=== PATIENT | male | born 1970 | race Caucasian/White ===

== ENCOUNTER 2019-12-31 16:10 | Emergency (ER) | payer OTHER ==
[2019-12-31] MEDS ORDERED: ASPIRIN 325 MG TABLET PO ONE (16:14)
--- NOTE | 2019-12-31 16:16 | PDOC ---
Attending Attestation - Resident Resident Name: Ethan Anand - ED Attending Attestation I have performed the following: I have examined & evaluated the patient, The case was reviewed & discussed with the resident, I agree w/resident's findings & plan, Exceptions are as noted - HPI HPI: 12/31/19 16:12 49YOM without PMH, smokes 1PPD, family h/o CAD in his father, who p/w chest pain for the past month, being treated for the past 4 days as GERD, now acutely worse for the past 20 minutes and associated with diaphoresis, SOB, nausea, impending doom feeling. Pain radiates up to both sides of his neck and jaw. He did not take any medication for this. Denies any trauma, vomiting, f/c, abdominal pain, back pain, etc. - Physicial Exam PE: 12/31/19 17:00 GENERAL: Patient writhing, yelling, in severe distress, clutching mid-chest, a bit diaphoretic HEENT: PERRLA, EOMI, moist mucous membranes NECK/BACK: no midline ttp, no spinal step-off or deformity, no hematoma, full ROM, neck supple CARDIOVASCULAR: regular rate/rhythm, no MGR, strong peripheral pulses, capillary refill <2 seconds, extremities wwp, no edema LUNGS/RESPIRATORY: no respiratory distress, CTAB GI/ABDOMEN: symmetric [id number], normoactive BS, soft, no ttp, no midline pulsatile masses : no CVA tenderness MSK/EXTREMITIES: no muscle atrophy, no acute deformity SKIN: warm and dry, no pallor, no jaundice, no rash, no pathologic-appearing bruising, no skin breakdown, no cuts, no lesions NEUROLOGICAL: GCS 15, CN II-XII grossly intact, 5/5 strength proximally and distally, no facial droop - Medical Decision Making 12/31/19 16:32 49YOM without PMH p/w STEMI, crushing chest pain, SOB, nausea, diaphoresis, impending doom feeling Initial Vital Signs Temp Pulse Resp BP Pulse Ox 98 F 62 20 130/78 100 12/31/19 16:12 12/31/19 16:12 12/31/19 16:12 12/31/19 16:12 12/31/19 16:12 12/31/19 16:20 ASA 324 mg given to chew. Patient accepted Code Red to [facility], Dr. Kingsley. I let the [facility] transfer conference center manager know this needs to be top priority code red. 12/31/19 16:27 Heparin bolus + drip ordered in consultation with [facility] Cardiology. On initial EKG there is no NANY in V1 (which is the only lead looking directly at the right ventricle). Small dose morphine ordered as patient was nearly screaming in pain (BP prior to administration in the 140s systolic). Patient notes still in significant pain after morphine and ASA. Getting Ofirmev and IVF now. Radial pulses equal, not hypertensive, no midline pulsatile mass, still severe distress writhing in bed. 12/31/19 16:40 Ordering repeat EKG as the patient continues to have severe pain, continues to writhe. RN calling [facility] transfer center to ensure transport is en route. 12/31/19 16:43 I have texted [facility] cardiology team to have them request expedited transport as well. Confirmed [facility] en route. Repeat shows significantly worsened NANY in II/III/aVF with significant reciprocal depressions. Last Vital Signs Temp Pulse Resp BP Pulse Ox 98 F 64 18 137/78 100 12/31/19 16:12 12/31/19 17:04 12/31/19 16:45 12/31/19 17:04 12/31/19 16:45 1/2 inch NTG paste placed on chest with significant relief of pain. EMS arrives and informed they can remove nitro paste from chest wall if pressure drops below 120 systolic. Patient reports residual pain, but much better controlled. Provider Orders Category Date Time Status TYPE AND SCREEN Stat Blood Bank 12/31/19 16:19 Completed EKG [ELECTROCARDIOGRAM] [CARD] Stat Cardiology 12/31/19 16:36 Completed EKG [ELECTROCARDIOGRAM] [CARD] Stat Cardiology 12/31/19 16:38 Ordered EKG needed NOW Care 12/31/19 16:36 Completed CARDIAC PROFILE (ONLY [facility]) Stat Lab 12/31/19 16:14 Completed CBC WITH DIFFERENTIAL Stat Lab 12/31/19 16:18 Completed CK INDEX Stat Lab 12/31/19 16:14 Completed CK MB Stat Lab 12/31/19 16:14 Completed COMP METABOLIC PANEL Stat Lab 12/31/19 16:14 Completed Acetaminophen Injection [Ofirmev Injection -] 100 ml Medication 12/31/19 16:23 Discontinued IVPB UD Aspirin [ASA -] Medication 12/31/19 16:18 Discontinued 324 mg .ROUTE .STK-MED ONE Aspirin [ASA -] Medication 12/31/19 16:14 Discontinued 325 mg PO ONCE ONE Heparin - Medication 12/31/19 16:31 Discontinued 5,000 unit .ROUTE .STK-MED ONE Heparin - Medication 12/31/19 16:27 Discontinued 5,000 unit IVPUSH PRN PRN Heparin - 25,000 unit Medication 12/31/19 16:30 Discontinued Sodium Chloride [Normal Saline -] 495 ml IV TITR Heparin Infusion - Medication 12/31/19 16:31 Discontinued 25,000 units in 500 ml IVPB UD Morphine Injection - Medication 12/31/19 16:34 Discontinued 4 mg IVPUSH ONCE ONE Morphine Sulfate Medication 12/31/19 16:24 Discontinued 2 mg IVPUSH ONCE ONE Morphine Sulfate Medication 12/31/19 16:24 Discontinued 4 mg .ROUTE .STK-MED ONE Morphine Sulfate Medication 12/31/19 16:34 Discontinued 4 mg .ROUTE .STK-MED ONE Nitroglycerin 2% Paste [Nitro-Bid 2% Paste -] Medication 12/31/19 16:36 Discontinued 1 inch TD .STK-MED ONE Nitroglycerin 2% Paste [Nitro-Bid 2% Paste -] Medication 12/31/19 16:36 Discontinued 1 inch TD ONCE ONE Sodium Chloride [Normal Saline -] Medication 12/31/19 16:20 Discontinued 1,000 ml IV ONCE ONE CHEST X-RAY PORTABLE* [RAD] Stat Radiology 12/31/19 16:16 Completed Medications Discontinued Medications Generic Name Dose Route Start Last Admin Trade Name Freq PRN Reason Stop Dose Admin Aspirin 325 mg 12/31/19 16:14 12/31/19 16:18 Asa - PO 12/31/19 16:15 325 mg ONCE ONE Administration Aspirin Confirm 12/31/19 16:18 Asa - Administered 12/31/19 16:19 Dose 324 mg .ROUTE .STK-MED ONE Heparin Sodium (Porcine) 5,000 unit 12/31/19 16:27 12/31/19 16:48 Heparin - IVPUSH 5,000 unit PRN PRN Administration Heparin Heparin Sodium (Porcine) Confirm 12/31/19 16:31 Heparin - Administered 12/31/19 16:32 Dose 5,000 unit .ROUTE .STK-MED ONE Acetaminophen Confirm 12/31/19 16:23 Ofirmev Injection - Administered 12/31/19 16:24 Dose 100 mls @ ud IVPB .STK-MED ONE Heparin Sodium (Porcine) 25, 500 mls @ 20 mls/hr 12/31/19 16:30 12/31/19 16:47 000 unit/ Sodium Chloride IV 1,000 unit/hr TITR COURTNEY 20 mls/hr Administration Protocol 1,000 UNIT/HR Heparin Sodium/Dextrose Confirm 12/31/19 16:31 Heparin Infusion - Administered 12/31/19 16:32 Dose 25,000 units in 500 mls @ ud IVPB .STK-MED ONE Morphine Sulfate Confirm 12/31/19 16:24 Morphine Sulfate Administered 12/31/19 16:25 Dose 4 mg .ROUTE .STK-MED ONE Morphine Sulfate 2 mg 12/31/19 16:24 12/31/19 16:30 Morphine Sulfate IVPUSH 12/31/19 16:25 2 mg ONCE ONE Administration Morphine Sulfate 4 mg 12/31/19 16:34 12/31/19 16:40 Morphine Injection - IVPUSH 12/31/19 16:35 4 mg ONCE ONE Administration Morphine Sulfate Confirm 12/31/19 16:34 Morphine Sulfate Administered 12/31/19 16:35 Dose 4 mg .ROUTE .STK-MED ONE Nitroglycerin 1 inch 12/31/19 16:36 12/31/19 16:40 Nitro-Bid 2% Paste - TD 12/31/19 16:37 1 inch ONCE ONE Administration Nitroglycerin Confirm 12/31/19 16:36 Nitro-Bid 2% Paste - Administered 12/31/19 16:37 Dose 1 inch TD .STK-MED ONE Sodium Chloride 1,000 ml 12/31/19 16:20 12/31/19 16:30 Normal Saline - IV 12/31/19 16:21 1,000 ml ONCE ONE Administration Lab Results WBC 9.8 K/mm3 (4.0-10.8) 12/31/19 16:18 RBC 4.95 M/mm3 (4.00-5.60) 12/31/19 16:18 Hgb 15.8 GM/dl (11.7-16.9) 12/31/19 16:18 Hct 45.3 % (35.4-49) 12/31/19 16:18 MCV 91.6 fl (80-96) 12/31/19 16:18 MCH 31.9 pg (25.7-33.7) 12/31/19 16:18 MCHC 34.8 g/dl (32.0-35.9) 12/31/19 16:18 RDW 12.7 % (11.9-15.9) 12/31/19 16:18 Plt Count 211 K/MM3 (134-434) 12/31/19 16:18 MPV 8.4 fl (7.5-11.1) 12/31/19 16:18 Absolute Neuts (auto) 6.3 K/mm3 12/31/19 16:18 Neutrophils % 63.6 % (42.8-82.8) 12/31/19 16:18 Lymphocytes % 29.0 % (8-40) 12/31/19 16:18 Monocytes % 3.9 % (3.8-10.2) 12/31/19 16:18 Eosinophils % 2.0 % (0-4.5) 12/31/19 16:18 Basophils % 1.5 % (0-2.0) 12/31/19 16:18 Sodium 138 mmol/L (136-145) 12/31/19 16:14 Potassium 3.7 mmol/L (3.5-5.1) 12/31/19 16:14 Chloride 104 mmol/L (98-107) 12/31/19 16:14 Carbon Dioxide 25 mmol/L (21-32) 12/31/19 16:14 Anion Gap 9 MMOL/L (8-16) 12/31/19 16:14 BUN 8.0 mg/dl (7-18) 12/31/19 16:14 Creatinine 0.9 mg/dl (0.55-1.3) 12/31/19 16:14 Est GFR (CKD-EPI)AfAm 115.02 12/31/19 16:14 Est GFR (CKD-EPI)NonAf 99.24 12/31/19 16:14 Random Glucose 99 mg/dl (74-106) 12/31/19 16:14 Calcium 8.4 mg/dl (8.5-10) L 12/31/19 16:14 Total Bilirubin 0.8 mg/dl (0.2-1) 12/31/19 16:14 AST 53 U/L (15-37) H 12/31/19 16:14 ALT 46 U/L (13-61) 12/31/19 16:14 Alkaline Phosphatase 80 U/L (45-117) 12/31/19 16:14 Creatine Kinase 379 U/L (26-308) H 12/31/19 16:14 Creatine Kinase Index 1.7 % (0.0-5.0) 12/31/19 16:14 CK-MB (CK-2) 6.6 ng/mL (0.5-3.6) H 12/31/19 16:14 Troponin I 0.51 ng/ml (0.00-0.05) H 12/31/19 16:14 Total Protein 6.9 g/dl (6.4-8.2) 12/31/19 16:14 Albumin 4.1 g/dl (3.4-5.0) 12/31/19 16:14 Blood Type AB POSITIVE 12/31/19 16:19 Antibody Screen Negative 12/31/19 16:19 Heart Score/ECG Review - History History: Highly suspicious - Electrocardiogram EKG: Significant ST-depression - Age Age: 45-65 - Risk Factors Risk Factors Heart Score: Yes Smoking History, Yes Positive family hx of cardiac disease Based on the list above the patient has:: 1-2 risk factors - Troponin Troponin: >/=3x normal limit - Score Heart Score - Total: 8 #1 12/31/19 16:15 Sinus rhythm, rate 56, normal axis and intervals, 1mm ST elevations in II and aVF and a 2mm ST elevation in lead III, with reciprocal ST depressions and TWI in I and aVL. STEMI. #2 12/31/19 16:43 Sinus rhythm, normal axis and intervals, significantly worse ST elevations in II/III/aVF and ST depressions in I and aVL now also in the anterior leads Discharge - Discharge Information Problems reviewed: Yes Clinical Impression/Diagnosis: STEMI (ST elevation myocardial infarction) Qualifiers: Involved coronary artery: unspecified coronary artery Qualified Code(s): I21.3 - ST elevation (STEMI) myocardial infarction of unspecified site Condition: Guarded Disposition: TRANSFER ACUTE CARE/OTHER HOSP - Follow up/Referral - Patient Discharge Instructions - Post Discharge Activity - Transfer to Acute Care Facility Receiving Facility Name: [facility] Accepting Physician:: Dr. Kingsley Transfer Comment: 12/31/19 16:18 Code Red
[2019-12-31] MEDS ORDERED: ASPIRIN 81 MG CHEWABLE TABLETS ONE (16:18)
[2019-12-31 16:20] VITALS: TEMP 98; BMI 32.3
[2019-12-31] MEDS ORDERED: SODIUM CHLORIDE 0.9% 500 ML INFUS.BAG IV ONE (16:20)
[2019-12-31] MEDS ORDERED: ACETAMINOPHEN INJECTION 100 ML IVPB ONE (16:23)
[2019-12-31] MEDS ORDERED: morphine SULFATE 4 MG/ML VIAL ONE ×2 (16:24→16:34)
[2019-12-31] MEDS ORDERED: MORPHINE SULFATE 2 MG/ML VIAL IVPUSH ONE (16:24)
--- OUTSIDE RECORDS SUMMARY | 2019-12-31 16:24 | XMS ---
:1970 Author Organization [facility] Care Team Providers Name Role Phone Vinay Velasquez MD Unavailable Unavailable Ron, Itha MD Unavailable Unavailable Ron, Itha MD Unavailable Unavailable Ron, Itha MD Unavailable Unavailable Ron, Itha MD Unavailable Unavailable Ron, Itha MD Unavailable Unavailable Ron, Itha MD Unavailable Unavailable Ron, Itha MD Unavailable Unavailable Ron, Itha MD Unavailable Unavailable Ron, Itha MD Unavailable Unavailable Ron, Itha MD Unavailable Unavailable Ron, Itha MD Unavailable Unavailable Ron, Itha MD Unavailable Unavailable Ron, Itha MD Unavailable Unavailable Ron, Itha MD Unavailable Unavailable Re-disclosure Warning The records that you are about to access may contain information from federally- assisted alcohol or drug abuse programs. If such information is present, then the following federally mandated warning applies: This information has been disclosed to you from records protected by federal confidentiality rules (42 CFR part 2). The federal rules prohibit you from making any further disclosure of this information unless further disclosure is expressly permitted by the written consent of the person to whom it pertains or as otherwise permitted by 42 CFR part 2. A general authorization for the release of medical or other information is NOT sufficient for this purpose. The Federal rules restrict any use of the information to criminally investigate or prosecute any alcohol or drug abuse patient.The records that you are about to access may contain highly sensitive health information, the redisclosure of which is protected by Article 27-F of the [facility] Public Health law. If you continue you may haveaccess to information: Regarding HIV / AIDS; Provided by facilities licensed or operated by the [facility] Office of Mental Health; or Provided by the [facility] Office for People With Developmental Disabilities. If such information is present, then the following [facility] mandated warning applies: This information has been disclosed to you from confidential records which are protected by state law. State law prohibits you from making any further disclosure of this information without the specific written consent of the person to whom it pertains, or as otherwise permitted by law. Any unauthorized further disclosure in violation of state law may result in a fine or snf sentence or both. A general authorization for the release of medical or other information is NOT sufficient authorization for further disclosure. Encounters Encounter Providers Location Date Indications Data Source(s ) Outpatient Attender: Vinay [facility] Mad[facility] MD 10:45:00 AM Hospital EDT - 09/01/2019 11:59:00 PM EDT Patient discharged. Insurance Providers Payer name Policy type / Policy ID Covered Covered green party's Policy Plan Coverage type green party ID relationship to Amanda Information amanda SELF PAY SP INSURANCE [employer] [id number] Ess Plan 1&2 Problems, Conditions, and Diagnoses Code Display Name Description Problem Type Effective Dates Data Source(s) Z11.59 Encounter for Screening for Diagnosis 09/01/2019 [facility] Danish valdez screening for viral disease 12:00:00 AM EDT [facility] other viral diseases Results ID Date Data Source [id number] 09/07/2019 02:02:[address] [facility] Name Value Range Interpretation Description Data Sup porting Code Source(s) Document(s ) 53863-6 NEGATIVE Testing Normal (applies COVID-19.. [place] i[place] was performed to non-numeric Health Syst em using Keith ID results) NOW COVID-19, an isothermal nucleic acid amplification technology for the qualitative detection of nucleic acid from the SARS-CoV-2 viral RNA in respiratory specimens. The ID NOW COVID-19 test has been approved by the Food and Drug Administration (FDA) under an Emergency Use Authorization for use by authorized laboratories. Reference Range: NEGATIVE . ID Date Data Source [id number] 09/01/2019 10:50:00 AM EDT [facility] Name Value Range Interpretation Code Description Data Sandra rce(s) Supporting Document(s ) COVID-19.. [facility] This lab was ordered by [facility] and reported by [facility]. Procedure
[2019-12-31] MEDS ORDERED: HEPARIN NA (PORCINE) 5,000 UNITS/ML 1ML VIAL IVPUSH PRN (16:27)
[2019-12-31] MEDS ORDERED: HEPARIN - 25,000 UNIT in SODIUM CHLORIDE 495 ML IV SCH (16:30)
[2019-12-31] MEDS ORDERED: HEPARIN INFUSION - 25,000 UNITS/500 ML INFUS.BAG IVPB ONE (16:31)
[2019-12-31] MEDS ORDERED: HEPARIN NA (PORCINE) 5,000 UNITS/ML 1ML VIAL ONE (16:31)
--- NOTE | 2019-12-31 16:31 | PDOC ---
History of Present Illness - General Chief Complaint: Chest Pain Stated Complaint: CHEST PAIN Time Seen by Provider: 12/31/19 16:12 - History of Present Illness Initial Comments: 12/31/19 16:31 49 yo male with pmh of 25 pack year history presenting to the ED for chest pain for the last 20 minutes. Pt explains that he was was having on and off chest pain for the last four days. He has been being treated by his PCP Dr. Smalls who told him to take pepcid. Pt then had sharp severe pain starting twenty minutes prior to ED arrival so decided to come to the ER. Pt explains pain is going from midsternal area and radiates to both arms. Pt also has associated nausea, diaphoresis, and SOB. Pt explains worsening with movement and lying down. Pt denies fevers, chills, cough, emesis or sick contacts PMH: denies Meds: pantaprazole allergies: denies PSH: denies social: 25 pack year; social drinking; denies drugs PCP: Dr. Smalls ([place]) Past History - Medical History Allergies/Adverse Reactions: Allergies Allergy/AdvReac Type Severity Reaction Status Date / Time No Known Allergies Allergy Verified 12/31/19 16:11 COPD: No CHF: No - Psycho-Social/Smoking History Smoking History: Current every day smoker Number of Cigarettes Smoked Daily: 20 Information on smoking cessation initiated: Yes - Substance Abuse Hx (Audit-C & DAST Scrn) How often the patient has a drink containing alcohol: Monthly or less Number of drinks the patient has on a typical day: 1 or 2 How often the patient has six or more drinks on one occasion: Never Score: In Men: 4 or > Positive; In Women: 3 or > Positive: 1 Screen Result (Pos requires Nsg. Audit-10AR): Negative In the last yr the pt used illegal drug/Rx for NonMed reason: No Score: Yes response is considered Positive: 0 Screen Result (Positive result requires Nsg. DAST-10): Negative Review of Systems - Review of Systems Comments:: 12/31/19 21:44 GENERAL/CONSTITUTIONAL: No fever or chills. No weakness. HEAD, EYES, EARS, NOSE AND THROAT: No change in vision. No ear pain or discharge. No sore throat. CARDIOVASCULAR:Chest pain and SOB RESPIRATORY: No cough, wheezing, or hemoptysis. GASTROINTESTINAL: No nausea, vomiting, diarrhea or constipation. GENITOURINARY: No dysuria, frequency, or change in urination. MUSCULOSKELETAL: No joint or muscle swelling or pain. No neck or back pain. SKIN: No rash NEUROLOGIC: No headache, vertigo, loss of consciousness, or change in strength/sensation. ALLERGIC/IMMUNOLOGIC: No hives or skin allergy. *Physical Exam - Vital Signs Last Vital Signs Temp Pulse Resp BP Pulse Ox 98 F 62 20 130/78 100 12/31/19 16:12 12/31/19 16:12 12/31/19 16:12 12/31/19 16:12 12/31/19 16:12 - Physical Exam 12/31/19 21:45 GENERAL: Awake, alert, and fully oriented, in severe distress HEAD: No signs of trauma, normocephalic, atraumatic EYES: EOMI, sclera anicteric, conjunctiva clear ENT: Auricles normal inspection, hearing grossly normal, nares patent, oropharynx clear without exudates. Moist mucosa NECK: Normal ROM, supple, no lymphadenopathy, JVD, or masses LUNGS: speaks full sentences, clear to auscultation bilaterally, Tachypnic HEART: Regular rate and rhythm, normal S1 and S2, no murmurs, rubs or gallops, peripheral pulses normal and equal bilaterally. ABDOMEN: Soft, nontender, normoactive bowel sounds. No guarding, no rebound. No masses EXTREMITIES : Normal inspection, Normal range of motion, no edema. No clubbing or cyanosis. NEUROLOGICAL: Cranial nerves II through XII grossly intact. Normal speech, normal gait Heart Score/ECG Review - History History: Highly suspicious - Electrocardiogram EKG: Significant ST-depression - Age Age: 45-65 - Risk Factors Risk Factors Heart Score: Yes Smoking History, Yes Positive family hx of cardiac disease Based on the list above the patient has:: 1-2 risk factors - Troponin Troponin: >/=3x normal limit - Score Heart Score - Total: 8 - ECG Impressions Comment:: 12/31/19 16:53 ST elevation in II, III, aVF ST depression in I aVL, and V1 and V2 Regular rate and rhythm at 76 bpm Normal DE, QRS, and QT interval Normal axis ED Treatment Course - LABORATORY CBC & Chemistry Diagram: 12/31/19 16:18 12/31/19 16:14 - RADIOLOGY Radiology Studies Ordered: Category Date Time Status CHEST X-RAY PORTABLE* [RAD] Stat Radiology 12/31/19 16:16 Ordered - Medications Given in the ED: ED Medications Discontinued Medications Generic Name Dose Route Start Last Admin Trade Name Bobby PRN Reason Stop Dose Admin Morphine Sulfate 2 mg 12/31/19 16:24 12/31/19 16:30 Morphine Sulfate IVPUSH 12/31/19 16:25 2 mg ONCE ONE Administration Sodium Chloride 1,000 ml 12/31/19 16:20 12/31/19 16:30 Normal Saline - IV 12/31/19 16:21 1,000 ml ONCE ONE Administration Medical Decision Making - Medical Decision Making 12/31/19 16:49 49 yo male with pmh of 25 pack year history presents with chest pain. EKG shows II, III, aVF STEMI. Pt was given 324 asn, 2 morphine, O2. Pt is being transp orted to [facility]. [facility] wanted heparin bolus and drip so started. PT cont have pain given acetaminophen and 4 of morphine. EKG shows worsening elevations. Pt given nitro paste because pain not relieving and with EKG showing R wave larger in II than III most likely not right sided NH. Will wipe away paste if pt becomes hypotensive. Pt transferred to [facility] Discharge - Discharge Information Problems reviewed: Yes Clinical Impression/Diagnosis: STEMI (ST elevation myocardial infarction) Qualifiers: Involved coronary artery: unspecified coronary artery Qualified Code(s): I21.3 - ST elevation (STEMI) myocardial infarction of unspecified site Condition: Guarded Disposition: TRANSFER ACUTE CARE/OTHER HOSP - Follow up/Referral - Patient Discharge Instructions - Post Discharge Activity
[2019-12-31] MEDS ORDERED: morphine CARPU-JECT 4 MG/1 ML DISP.SYRIN IVPUSH ONE (16:34)
[2019-12-31 16:36] LABS: BASO % 1.5 % (0-2.0); HEMATOCRIT 45.3 % (35.4-49); HEMOGLOBIN 15.8 GM/dl (11.7-16.9); MCH 31.9 pg (25.7-33.7); MCHC 34.8 g/dl (32.0-35.9); MEAN CELL VOLUME 91.6 fl (80-96); MEAN PLT VOLUME 8.4 fl (7.5-11.1); MONO % 3.9 % (3.8-10.2); NEUT % 63.6 % (42.8-82.8); PLATELET COUNT 211 K/MM3 (134-434); RBC 4.95 M/mm3 (4.00-5.60); RDW 12.7 % (11.9-15.9); WHITE BLOOD COUNT 9.8 K/mm3 (4.0-10.8)
[2019-12-31] MEDS ORDERED: NITROGLYCERIN 2% OINTMENT - 1GM PACKET TD ONE ×2 (16:36)
[2019-12-31 16:43] LABS: ALBUMIN 4.1 g/dl (3.4-5.0); BILIRUBIN,TOTAL 0.8 mg/dl (0.2-1); CALCIUM 8.4 mg/dl (8.5-10); CREATININE 0.9 mg/dl (0.55-1.3); POTASSIUM 3.7 mmol/L (3.5-5.1); TOT PROT 6.9 g/dl (6.4-8.2)
[2019-12-31 17:05] VITALS: BP 137/78; PULSE 64
--- NOTE | 2020-01-02 07:10 | EKG ---
Test Reason : Blood Pressure : / mmHG Vent. Rate : 056 BPM Atrial Rate : 056 BPM P-R Int : 140 ms QRS Dur : 086 ms QT Int : 396 ms P-R-T Axes : 027 059 076 degrees QTc Int : [address] ELEVATION CONSIDER INFERIOR INJURY OR ACUTE INFARCT ACUTE NE / STEMI ABNORMAL ECG NO PREVIOUS ECGS AVAILABLE CLINICAL CORRELATION IS RECOMMENDED Confirmed by ROC HUMPHREYS, SONIA ([id number]) on 01/02/2020 7:09:32 AM Referred By: MD HARGROVE Confirmed By:SONIA BRIAN MD
--- NOTE | 2020-01-03 11:52 | EKG ---
Test Reason : Blood Pressure : / mmHG Vent. Rate : 076 BPM Atrial Rate : 076 BPM P-R Int : 142 ms QRS Dur : 082 ms QT Int : 372 ms P-R-T Axes : 059 076 094 degrees QTc Int : 418 ms NORMAL SINUS RHYTHM ST ELEVATION CONSIDER INFERIOR INJURY OR ACUTE INFARCT ACUTE IN / STEMI Consider right ventricular involvement in acute inferior infarct ABNORMAL ECG WHEN COMPARED WITH ECG OF 31-DEC-2019 16:15, ST MORE ELEVATED IN INFERIOR LEADS T WAVE INVERSION NOW EVIDENT IN LATERAL LEADS Confirmed by DON STOREY MD ([id number]) on 01/03/2020 11:52:35 AM Referred By: MD HARGROVE Confirmed By:DON STOREY MD
== END 2019-12-31 17:08 | disposition short-term general hospital (02) ==
LOC: FER 16:10
PROC: 3E033NZ Introduction of Analgesics, Hypnotics, Sedatives into Peripheral Vein, Percutaneous Approach (ICD-10-PCS; principal; 2019-12-31)
PROC: 3E033GC Introduction of Other Therapeutic Substance into Peripheral Vein, Percutaneous Approach (ICD-10-PCS; 2019-12-31)
DX: I21.3 ST elevation (STEMI) myocardial infarction of unspecified site (principal)
CPT/HCPCS: 36415; 71045-TC-FY; 80053; 82550; 82553; 84484; 85025; 86850; 86900; 86901; 93005; 99285-25; J1644

== ENCOUNTER 2021-05-09 10:22 | Day surgery (SDC) | payer OTHER ==
[2021-05-07 10:27] VITALS: BMI 29.0
[2021-05-09] MEDS ORDERED: BUPIVACAINE HCL/PF 2.5 MG/ML - 30 ML VIAL IJ ONE (11:27)
[2021-05-09] MEDS ORDERED: GUM MASTIC/STORAX/MSAL/ALCOHOL 1 DRP DROPSBTL MC ONE (11:45)
[2021-05-09] MEDS ORDERED: PROPOFOL 20 ML ONE ×2 (11:55)
[2021-05-09] MEDS ORDERED: SUCCINYLCHOLINE CHLORIDE 200 MG/10 ML SYRINGE ONE (11:55)
[2021-05-09] MEDS ORDERED: fentaNYL CITRATE 250 MCG/5 ML VIAL ONE (11:56)
[2021-05-09] MEDS ORDERED: MIDAZOLAM HCL 2 MG/2 ML SINGLE DOSE VIAL ONE (11:56)
[2021-05-09] MEDS ORDERED: GLYCOPYRROLATE 0.2 MG/1 ML VIAL ONE (11:57)
[2021-05-09] MEDS ORDERED: DEXAMETHASONE SOD PHOSPHATE 4 MG/1 ML VIAL ONE (12:41)
[2021-05-09] MEDS ORDERED: SODIUM CHLORIDE 0.9% P/F 10 ML VIAL IJ ONE (12:42)
[2021-05-09] MEDS ORDERED: ceFAZolin SODIUM 1 GM VIAL ONE (12:42)
[2021-05-09] MEDS ORDERED: ONDANSETRON 4 MG/2 ML VIAL ONE (12:43)
[2021-05-09] MEDS ORDERED: KETOROLAC TROMETHAMINE 30 MG/1 ML VIAL ONE (13:12)
[2021-05-09] MEDS ORDERED: ACETAMINOPHEN 1000 MG/100 ML BAG IVPB ONE (13:27)
[2021-05-09] MEDS ORDERED: ONDANSETRON 4 MG/2 ML VIAL IVPUSH PRN (13:27)
[2021-05-09] MEDS ORDERED: oxyCODONE HCL 5 MG TABLET PO PRN (13:27)
[2021-05-09] MEDS ORDERED: PROMETHAZINE HCL 25 MG/1 ML VIAL IVPUSH PRN (13:27)
[2021-05-09] MEDS ORDERED: LACTATED RINGERS SOLUTION 1,000 ML IV SCH (13:30)
[2021-05-09 14:02] VITALS: TEMP 97.7
[2021-05-09 14:56] VITALS: BP 107/66; PULSE 65
== END 2021-05-09 14:56 | disposition home or self-care (01) ==
LOC: FASU 10:22
PROVIDERS: ATTEND Orthopaedic Surgery
PROC: 0SBD4ZZ Excision of Left Knee Joint, Percutaneous Endoscopic Approach (ICD-10-PCS; principal; 2021-05-09 12:53)
DX: S83.242A Other tear of medial meniscus, current injury, left knee, initial encounter (principal); X58.XXXA Exposure to other specified factors, initial encounter; Y93.9 Activity, unspecified; Y92.9 Unspecified place or not applicable
CPT/HCPCS: 94760